=== PATIENT | male | born 1960 | race Caucasian/White ===

== ENCOUNTER 2025-04-09 13:58 | Outpatient (CLI) | payer OTHER | END 2025-04-09 13:59 | disposition home or self-care (01) | LOC: CSHSLEEP 13:58 | PROVIDERS: ATTEND Internal Medicine | DX: G47.33 Obstructive sleep apnea (adult) (pediatric) (principal); R53.83 Other fatigue; R06.83 Snoring; I10 Essential (primary) hypertension; G47.61 Periodic limb movement disorder; G47.31 Primary central sleep apnea; R09.02 Hypoxemia | CPT/HCPCS: 95811 ==